=== PATIENT | male | born 1950 | race Caucasian/White ===

== ENCOUNTER 2019-06-13 02:42 | Emergency (ER) | payer BC ==
[2019-06-13] MEDS ORDERED: ALBUTEROL NEB SOL 2.5MG/3ML 1 VIAL SOL NEB ONE ×2 (02:47→03:55)
[2019-06-13] MEDS ORDERED: ALBUTEROL NEB SOL 2.5MG/3ML 1 VIAL SOL ONE ×2 (02:47→03:59)
[2019-06-13 03:09] LABS: BASOPHILS % (AUTO) 1 % (0-3); EOSINOPHILS % (AUTO) 9 % (0-9); HEMATOCRIT 45 % (39-53); HEMOGLOBIN 14.5 gm/dl (13.5-17.7); LYMPHOCYTES % (AUTO) 20.5 % (10-50); MEAN CORPUSCULAR HEMOGLOBIN 29.7 pg (27.0-32.0); MEAN CORPUSCULAR HGB CONC 31.9 gm/dl (32.0-36.0); MEAN CORPUSCULAR VOLUME 93 fL (80-100); MONOCYTES % (AUTO) 11.4 % (0-12); NEUTROPHILS % (AUTO) 58.7 % (37-80)
[2019-06-13 03:17] VITALS: TEMP 98.4
[2019-06-13] MEDS ORDERED: PREDNISONE 20 MG TAB PO ONE (03:24)
[2019-06-13 03:26] VITALS: RESP 20
[2019-06-13 03:28] LABS: BLOOD UREA NITROGEN 20 mg/dl (7-18); CALCIUM 7.9 mg/dl (8.5-10.1); CARBON DIOXIDE 29.3 mEq/L (21-32); CHLORIDE 105 mMol/L (98-107); CREATININE 1.24 mg/dl (0.80-1.30); GLUCOSE 110 mg/dl (74-106); TROP I < 0.017 ng/ml (0.000-0.056)
[2019-06-13 03:39] VITALS: O2SAT 96
[2019-06-13 04:33] VITALS: BP 134/67; PULSE 70
== END 2019-06-13 04:26 | disposition home or self-care (01) ==
LOC: ED 02:42
DX: J47.0 Bronchiectasis with acute lower respiratory infection (principal); R06.2 Wheezing; R05 Cough; R06.00 Dyspnea, unspecified
CPT/HCPCS: 36415; 71045; 80048; 83880; 84484; 85025; 85379; 93005; 99283; 99284; J7613; A9270-GY